=== PATIENT | male | born 2000 | race Caucasian/White ===

== ENCOUNTER 2021-08-09 18:00 | Emergency (ER) | payer BC ==
[~2021-08-09] VITALS: Ht 175.3 cm; Wt 81.7 kg
[~2021-08-09 18:00] MED LIST: Gastrocrom20 MG/1 ML PO; KETOTIFEN PO; MONT10T PO; Prednisone20 MG PO; Ranitidine HCl300 M1 PO; VITAMIN D-32000 UNIT PO; WELCHOL3.75 GM PO
== END 2021-08-09 21:10 | disposition home or self-care (01) ==
LOC: ER 18:00
DX: S93.402A Sprain of unspecified ligament of left ankle, initial encounter (principal); F17.200 Nicotine dependence, unspecified, uncomplicated; W19.XXXA Unspecified fall, initial encounter
CPT/HCPCS: 73610; 73630; 99283-25